=== PATIENT | male | born 1955 | race Caucasian/White ===

== ENCOUNTER 2018-02-15 09:48 | Inpatient (IN) | payer SELFPAY ==
[~2018-02-15] VITALS: Ht 177.8 cm; Wt 78.2 kg
[2018-02-15 10:39] LABS: BASOPHIL % 0 % (0-2); PLATELET COUNT 306 x10^3mcL (130-400)
[2018-02-15 10:41] LABS: ALBUMIN 3.8 g/dL (3.4-5.0); ALKALINE PHOSPHATASE 73 U/L (46-116); ALT/SGPT 70 U/L (16-63); AST/SGOT 44 U/L (15-37); BILIRUBIN TOTAL 1.4 mg/dL (0.20-1.00); CALCIUM 8.8 mg/dL (8.5-10.1); CARBON DIOXIDE 27.5 mmol/L (21-32); CHLORIDE SERUM 83 mmol/L (98-107); CREATININE SERUM 0.7 mg/dL (0.7-1.3); GFR1 > 60 mL/min; GLUCOSE SERUM 166 mg/dL (74-106); LIPASE 128 IU/L (73-393); POTASSIUM SERUM 4.1 mmol/L (3.5-5.1); TOTAL PROTEIN, SERUM 7.4 g/dL (6.4-8.2); TRIGLYCERIDES 44 mg/dL (<150)
[2018-02-15 10:49] LABS: CHOLESTEROL 216 mg/dL (<200); CHOLESTEROL/HDL RATIO 1.9; HDL CHOLESTEROL 114 mg/dL (40-60); SODIUM SERUM 118 mmol/L (136-145)
[2018-02-15 11:04] LABS: T3 TOTAL 1.06 ng/mL
[2018-02-15 11:40] LABS: FREE T4 0.99 ng/dL (0.76-1.46); FREE THYROXINE INDEX 2.4 ug/dL (1.4-4.5); T4(THYROXINE) 6.5 ug/dL (4.7-13.3)
[2018-02-15] MEDS ORDERED: PROZAC40 MG (12:32)
[2018-02-15] MEDS ORDERED: PEPCID20 MG (12:33)
[2018-02-15] MEDS ORDERED: AMLODIPINE BES2.5 M1 (12:33)
[2018-02-15 12:55] LABS: microscopic required? NO
[2018-02-15 13:23] VITALS: BP 140/85
[2018-02-15 13:41] LABS: urine erythrocyte NEGATIVE (NEGATIVE)
[2018-02-15 13:46] VITALS: Ht 177.8 cm; Wt 78.2 kg
[2018-02-15 13:52] LABS: AMPHETAMINE QUAL UR NONE DETECTED (See below)
[2018-02-15 16:36] LABS: CALCIUM 9.1 mg/dL (8.5-10.1); CARBON DIOXIDE 28.5 mmol/L (21-32); CHLORIDE SERUM 92 mmol/L (98-107); CREATININE SERUM 0.8 mg/dL (0.7-1.3); GFR1 > 60 mL/min; GLUCOSE SERUM 141 mg/dL (74-106); MAGNESIUM 1.7 mg/dL (1.8-2.4); POTASSIUM SERUM 4.6 mmol/L (3.5-5.1); SODIUM SERUM 126 mmol/L (136-145)
[2018-02-15 18:28] VITALS: BP 141/84
[2018-02-15 18:38] LABS: CALCIUM 9.4 mg/dL (8.5-10.1); CARBON DIOXIDE 26.8 mmol/L (21-32); CHLORIDE SERUM 93 mmol/L (98-107); CREATININE SERUM 0.9 mg/dL (0.7-1.3); GFR1 > 60 mL/min; GLUCOSE SERUM 136 mg/dL (74-106); POTASSIUM SERUM 4.2 mmol/L (3.5-5.1); SODIUM SERUM 128 mmol/L (136-145)
[2018-02-15 20:51] VITALS: BP 137/88
[2018-02-16 05:26] VITALS: BP 141/97
[2018-02-16 06:06] LABS: CARBON DIOXIDE 29.8 mmol/L (21-32); CHLORIDE SERUM 97 mmol/L (98-107); GFR1 > 60 mL/min; GLUCOSE SERUM 111 mg/dL (74-106); MAGNESIUM 2.2 mg/dL (1.8-2.4); PHOSPHOROUS 3.4 mg/dL (2.5-4.9); PLATELET COUNT 293 x10^3mcL (130-400); POTASSIUM SERUM 4.2 mmol/L (3.5-5.1); SODIUM SERUM 134 mmol/L (136-145)
[2018-02-16 07:09] LABS: BASOPHIL % 0 % (0-2); RED CELL DISTRIBUTION WIDTH 16.1 % (11.5-14.5)
[2018-02-16 09:15] VITALS: BP 142/88
[2018-02-16] MEDS ORDERED: ATIVAN1 MG PO (11:13)
[2018-02-16] MEDS ORDERED: PROZ20 PO (11:34)
[2018-02-16 11:53] VITALS: BP 142/88
== END 2018-02-16 12:34 | disposition home or self-care (01) | DRG 640 ==
LOC: ED 09:48 → DU 11:46
PROVIDERS: Internal Medicine; Specialist
DX: E87.1 Hypo-osmolality and hyponatremia (principal); G92 Toxic encephalopathy; F10.239 Alcohol dependence with withdrawal, unspecified; Z60.2 Problems related to living alone; K21.9 Gastro-esophageal reflux disease without esophagitis; I10 Essential (primary) hypertension; F32.9 Major depressive disorder, single episode, unspecified; R74.0 Nonspecific elevation of levels of transaminase and lactic acid dehydrogenase [LDH]; R73.9 Hyperglycemia, unspecified
CPT/HCPCS: 83880; 84439; G0480; J2060; J3490; J7030; Q0092

== ENCOUNTER 2018-02-25 22:25 | Inpatient (IN) | payer SELFPAY ==
[~2018-02-25] VITALS: Ht 180.3 cm; Wt 74.0 kg
[~2018-02-25 22:25] MED LIST: AMLODIPINE BES2.5 M1; ATIVAN1 MG PO; PEPCID20 MG; PROZ20 PO; PROZAC40 MG
[2018-02-25 22:35] VITALS: Ht 180.3 cm; Wt 74.0 kg
[2018-02-25 23:21] LABS: BASOPHIL % 0.1 % (0-2)
[2018-02-25 23:24] LABS: PLATELET COUNT 501 x10^3mcL (130-400); RED CELL DISTRIBUTION WIDTH 17.2 % (11.5-14.5)
[2018-02-25 23:32] LABS: CALCIUM 8.2 mg/dL (8.5-10.1); CARBON DIOXIDE 21.1 mmol/L (21-32); CHLORIDE SERUM 93 mmol/L (98-107); CREATININE SERUM 0.9 mg/dL (0.7-1.3); GFR1 > 60 mL/min; GLUCOSE SERUM 100 mg/dL (74-106); POTASSIUM SERUM 4.4 mmol/L (3.5-5.1); SODIUM SERUM 129 mmol/L (136-145)
[2018-02-25 23:42] LABS: ALBUMIN 3.7 g/dL (3.4-5.0); ALKALINE PHOSPHATASE 89 U/L (46-116); ALT/SGPT 35 U/L (16-63); AST/SGOT 48 U/L (15-37); BILIRUBIN TOTAL 0.8 mg/dL (0.20-1.00); FREE T4 1.08 ng/dL (0.76-1.46); TOTAL PROTEIN, SERUM 7.7 g/dL (6.4-8.2)
[2018-02-26 00:10] LABS: UA SPECIFIC GRAVITY 1.025 (1.005-1.035); microscopic required? YES; urine erythrocyte 1+ (NEGATIVE)
[2018-02-26] MEDS ORDERED: FLUOXETINE HYDR20 M2 PO (00:31)
[2018-02-26] MEDS ORDERED: FAMOTIDINE40 MG PO (00:31)
[2018-02-26] MEDS ORDERED: LOSARTAN POTASS50 M1 PO (00:31)
[2018-02-26 00:32] LABS: AMPHETAMINE QUAL UR NONE DETECTED (See below)
[2018-02-26 01:56] VITALS: BP 137/82
[2018-02-26 02:17] LABS: CHOLESTEROL/HDL RATIO 2.2
[2018-02-26 02:24] LABS: FREE T4 1.11 ng/dL (0.76-1.46); FREE THYROXINE INDEX 3.6 ug/dL (1.4-4.5); T4(THYROXINE) 9.6 ug/dL (4.7-13.3)
[2018-02-26 02:31] LABS: T3 TOTAL 1.07 ng/mL
[2018-02-26 03:07] VITALS: BP 137/73
[2018-02-26 05:34] LABS: BASOPHIL % 0.7 % (0-2)
[2018-02-26 05:38] LABS: PLATELET COUNT 417 x10^3mcL (130-400); RED CELL DISTRIBUTION WIDTH 16.7 % (11.5-14.5)
[2018-02-26 05:54] LABS: CALCIUM 7.8 mg/dL (8.5-10.1); CARBON DIOXIDE 25.2 mmol/L (21-32); CHLORIDE SERUM 102 mmol/L (98-107); CREATININE SERUM 0.8 mg/dL (0.7-1.3); GFR1 > 60 mL/min; GLUCOSE SERUM 91 mg/dL (74-106); LIPASE 159 IU/L (73-393); MAGNESIUM 1.9 mg/dL (1.8-2.4); PHOSPHOROUS 3.6 mg/dL (2.5-4.9); POTASSIUM SERUM 4.6 mmol/L (3.5-5.1); SODIUM SERUM 141 mmol/L (136-145)
[2018-02-26 07:45] VITALS: BP 156/94
[2018-02-26 15:25] VITALS: BP 149/88
[2018-02-26 21:25] VITALS: BP 157/85
[2018-02-27 04:56] VITALS: BP 133/85
[2018-02-27 09:00] VITALS: BP 152/101
[2018-02-27 10:30] LABS: BASOPHIL % 0.1 % (0-2); PLATELET COUNT 334 x10^3mcL (130-400); RED CELL DISTRIBUTION WIDTH 17.3 % (11.5-14.5)
[2018-02-27 10:34] LABS: CALCIUM 8.7 mg/dL (8.5-10.1); CARBON DIOXIDE 25.7 mmol/L (21-32); CHLORIDE SERUM 100 mmol/L (98-107); CREATININE SERUM 0.9 mg/dL (0.7-1.3); GFR1 > 60 mL/min; GLUCOSE SERUM 129 mg/dL (74-106); PHOSPHOROUS 3.2 mg/dL (2.5-4.9); SODIUM SERUM 138 mmol/L (136-145)
[2018-02-27 13:26] VITALS: BP 146/97
[2018-02-27 17:00] VITALS: BP 105/48; BP 145/95
[2018-02-27 20:58] VITALS: BP 148/104
[2018-02-27 22:36] VITALS: BP 136/82
[2018-02-28 06:27] VITALS: BP 145/85
[2018-02-28 08:07] VITALS: BP 154/102
[2018-02-28] MEDS ORDERED: FIORICET1 CAP PO ×2 (11:25→11:54)
[2018-02-28 12:04] VITALS: BP 130/84
[2018-02-28 12:14] VITALS: BP 130/84
== END 2018-02-28 12:45 | disposition home or self-care (01) | DRG 682 ==
LOC: ED 22:25 → DU 02-26 00:21 → IC 02-26 00:21 → DU 02-26 16:03
PROVIDERS: Emergency Medicine; Internal Medicine
DX: N17.0 Acute kidney failure with tubular necrosis (principal); G92 Toxic encephalopathy; E87.1 Hypo-osmolality and hyponatremia; E87.2 Acidosis; I10 Essential (primary) hypertension; K21.9 Gastro-esophageal reflux disease without esophagitis; F32.9 Major depressive disorder, single episode, unspecified; E83.51 Hypocalcemia; R74.0 Nonspecific elevation of levels of transaminase and lactic acid dehydrogenase [LDH]; D89.9 Disorder involving the immune mechanism, unspecified; F10.10 Alcohol abuse, uncomplicated; F12.10 Cannabis abuse, uncomplicated; Y90.0 Blood alcohol level of less than 20 mg/100 ml; F10.129 Alcohol abuse with intoxication, unspecified; Z91.81 History of falling
CPT/HCPCS: 83880; 84439; G0480; J2060; J3010; J7030